=== PATIENT | male | born 2000 | race Caucasian/White ===

== ENCOUNTER 2021-08-09 01:13 | Emergency (ER) | payer MEDICAID ==
[~2021-08-09] VITALS: Ht 180.3 cm; Wt 81.8 kg
[2021-08-09] MEDS ORDERED: LIDOcaine 1% W/epiNEPHrine 1:200,000 10ml vial IJ ONE (03:25)
[2021-08-09] MEDS ORDERED: LIDOcaine 1% w/epiNEPHrine 1:200,000 30ml vial IJ ONE (03:25)
[2021-08-09] MEDS ORDERED: IBUP-1984 PO (04:21)
[2021-08-09] MEDS ORDERED: ACET-1025 PO (04:21)
[2021-08-09 04:33] VITALS: BP 124/81
== END 2021-08-09 04:34 | disposition home or self-care (01) ==
LOC: ER 01:15
DX: S01.01XA Laceration without foreign body of scalp, initial encounter (principal); S06.0X1A Concussion with loss of consciousness of 30 minutes or less, initial encounter; S60.511A Abrasion of right hand, initial encounter; R51.9 Headache, unspecified; R11.0 Nausea; F17.200 Nicotine dependence, unspecified, uncomplicated; Z72.89 Other problems related to lifestyle; Z79.899 Other long term (current) drug therapy; X58.XXXA Exposure to other specified factors, initial encounter; Y93.89 Activity, other specified; Y92.89 Other specified places as the place of occurrence of the external cause; Y99.8 Other external cause status
CPT/HCPCS: 12001; 70450; 72125; 99285

== ENCOUNTER 2024-03-21 01:50 | Emergency (ER) | payer MEDICAID ==
[~2024-03-21] VITALS: Ht 182.9 cm; Wt 84.1 kg
[2024-03-21 01:51] VITALS: BP 174/131; PULSE 139; RESP 16; TEMP 98; O2SAT 94
== END 2024-03-21 02:12 | disposition home or self-care (01) ==
LOC: ER 01:50
DX: S60.511A Abrasion of right hand, initial encounter (principal); X58.XXXA Exposure to other specified factors, initial encounter; Y93.89 Activity, other specified; Y92.89 Other specified places as the place of occurrence of the external cause; Y99.8 Other external cause status
CPT/HCPCS: 99283